=== PATIENT | female | born 1955 | race African-American/Black ===

== ENCOUNTER 2019-03-28 07:27 | Day surgery (SDC) | payer OTHER ==
[2019-03-28 08:05] VITALS: BMI 37.4
[2019-03-28] MEDS ORDERED: MIDAZOLAM HCL 2 MG/2 ML SINGLE DOSE VIAL ONE ×2 (09:11→09:35)
[2019-03-28] MEDS ORDERED: LIDOCAINE HCL 1% PRESERVATIVE FREE - 30ML VIAL ONE (09:21)
[2019-03-28] MEDS ORDERED: CLINDAMYCIN PHOSPHATE 600 MG/4 ML VIAL ONE (09:33)
[2019-03-28] MEDS ORDERED: KETOROLAC TROMETHAMINE 30 MG/1 ML VIAL ONE (09:35)
[2019-03-28] MEDS ORDERED: LIDOCAINE HCL 1%, 10 MG/ML (50 mL VIAL) NR ONE (09:42)
[2019-03-28] MEDS ORDERED: PROMETHAZINE HCL 25 MG/1 ML VIAL IVPUSH PRN (10:07)
[2019-03-28] MEDS ORDERED: ONDANSETRON 4 MG/2 ML VIAL IVPUSH PRN (10:07)
[2019-03-28] MEDS ORDERED: oxyCODONE HCL 5 MG TABLET PO PRN (10:07)
[2019-03-28 11:02] VITALS: TEMP 98
[2019-03-28 11:34] VITALS: BP 133/75; PULSE 55
--- NOTE | 2019-03-29 07:45 | OP ---
DATE OF OPERATION: 03/28/2019 PREOPERATIVE DIAGNOSIS: Trigger-finger to the right long finger. POSTOPERATIVE DIAGNOSIS: Trigger-finger with cyst and mass at tendon sheath to the right long finger. PROCEDURE PERFORMED: Tendon sheath incision for trigger-finger and excision of mass from the tendon sheath. SURGEON: Kerline Atwood MD ITINERANT TEACHER ASSISTANT: ROBERTA Rodrigues ANESTHESIOLOGIST: Aram Stinson MD ANESTHESIA: Monitored anesthesia care was performed. DESCRIPTION OF PROCEDURE: The procedure consisted of the patient being brought in the operating room and gently transferred from the stretcher to the OR table with all bony prominences well padded. The right hand and arm were prepared and draped in sterile fashion.. Patient was given intravenous antibiotics with copious irrigation throughout the procedure to minimize risk of infection. Complete risks, benefits, and alternatives discussion was conducted with the patient, which was inclusive of, but not limited to, infection, bleeding, , paralysis, increased pain, need for repeat surgery. Patient asked questions, understood the procedure, and decided to proceed with surgical treatment. Following sterile preparation and draping of the right hand, an appropriate time-out was conducted, which was inclusive of, but not limited to, type of surgery, anesthesiologist, surgeon, site of surgery. Following sterile preparation and draping of the right hand, the hand was exsanguinated using a sterile Esmarch bandage, and tourniquet inflated to 250 mmHg. A linear incision in line with the distal palmar crease was made overlying the palpable mass in the long finger flexor tendon, which was overlying it. Dissection was carried down through the soft tissues with great care taken to protect the neurovascular structures. Hemostasis maintained using bipolar cautery. The tendon sheath was identified, and there was noted to be a large constriction of the tendon at this site. There was noted to be mass at this site, and the mass was excised. The tendon sheath was then released with the annular randell released. The patient was then gently awoken from the sedation and asked to open and close her hand. Full range of movement, which was fluid without obstruction, was identified. The wound was then copiously irrigated with sterile saline irrigant. The wounds were closed with 4-0 Prolene in interrupted mattress sutures. It should be noted tourniquet was deflated after approximately 15 minutes of tourniquet time. There were no complications. Patient tolerated the procedure well. The patient was transferred from the operating room to the recovery room following a sterile dressing application of Xeroform, 4x4s, fluffs, bulky dressing with Joaquín bandages and a stockinette for elevation. KERLINE ATWOOD M.D. [id number]
--- NOTE | 2019-04-02 16:33 | PATH ---
Surgical Pathology Report Patient Name: CHRIS SILVA [facility]. Rec. #: [id number] /Age/Gender: 1955 (Age: 63) / F Account: [id number] Location: [facility] Taken: 03/28/2019 Received: 03/28/2019 Reported: 04/02/2019 Physicians: Jagdish Atwood M.D. Specimen(s) Received RIGHT LONG FINGER CYST Clinical History Right long finger trigger finger Final Diagnosis CYST, RIGHT LONG FINGER, EXCISION: GANGLION CYST. Electronically Signed Mariela Amaro M.D. Gross Description Received in formalin, labeled "right long finger cyst" is a greco, irregular portion of soft tissue measuring 0.1 cm. in greatest dimension. The specimen is submitted in toto in one cassette. 03/31/201903/31/2019
== END 2019-03-28 11:45 | disposition home or self-care (01) ==
LOC: FASU 07:27
PROVIDERS: ATTEND Orthopaedic Surgery
PROC: 0LB70ZZ Excision of Right Hand Tendon, Open Approach (ICD-10-PCS; 2019-03-28)
PROC: 0LN70ZZ Release Right Hand Tendon, Open Approach (ICD-10-PCS; principal; 2019-03-28 09:42)
DX: M65.331 Trigger finger, right middle finger (principal); M67.843 Other specified disorders of tendon, right hand
CPT/HCPCS: 88304-TC; 94760

== ENCOUNTER 2020-12-23 05:38 | Day surgery (SDC) | payer OTHER ==
[2020-12-21 09:00] VITALS: BMI 39.9
[2020-12-23 09:53] VITALS: TEMP 97.3
[2020-12-23 12:20] VITALS: BP 126/50; PULSE 52
== END 2020-12-23 12:10 | disposition home or self-care (01) ==
LOC: JASU-ENDO 05:38
PROVIDERS: ATTEND Internal Medicine Gastroenterology
PROC: 0DBK8ZX Excision of Ascending Colon, Via Natural or Artificial Opening Endoscopic, Diagnostic (ICD-10-PCS; principal; 2020-12-23 09:29)
DX: Z12.11 Encounter for screening for malignant neoplasm of colon (principal); D12.2 Benign neoplasm of ascending colon; Z86.010 Personal history of colon polyps
CPT/HCPCS: 88305-TC

== ENCOUNTER 2024-02-28 04:30 | Day surgery (SDC) | payer OTHER ==
[2024-02-27 07:54] VITALS: BMI 40.3
[2024-02-28 12:30] VITALS: TEMP 98.1
[2024-02-28 12:33] VITALS: BP 114/60; PULSE 62; RESP 14
== END 2024-02-28 12:15 | disposition home or self-care (01) ==
LOC: JASU-ENDO 04:30
PROVIDERS: ATTEND Internal Medicine Gastroenterology
PROC: 0DJD8ZZ Inspection of Lower Intestinal Tract, Via Natural or Artificial Opening Endoscopic (ICD-10-PCS; principal; 2024-02-28 10:00)
DX: Z12.11 Encounter for screening for malignant neoplasm of colon (principal); Z86.010 Personal history of colon polyps; K57.30 Diverticulosis of large intestine without perforation or abscess without bleeding